=== PATIENT | male | born 1985 | race Caucasian/White ===

== ENCOUNTER 2019-02-25 07:38 | Emergency (ER) | payer BC ==
[2019-02-25 08:28] VITALS: BP 137/90
--- NOTE | 2019-02-25 08:58 | UC ---
Respiratory Complaint HPI - HPI Summary HPI Summary: 34 year old male with PMH + for asthma, sinus infections presents with sinus pain/ tenderness, right sided ear pain, sort throat, intermitteny shortness of breath. denies wheezing. has albuterol rescue inhaler for SOB, working well. Needs refill. no fever, chills. - History of Current Complaint Chief Complaint: UCGeneralIllness Stated Complaint: SINUS COMPLAINT Time Seen by Provider: 02/25/19 08:56 Hx Obtained From: Patient Onset/Duration: Sudden Onset, Lasting Days Severity Currently: None Pain Intensity: 0 Pain Scale Used: 0-10 Numeric Character: Cough: Nonproductive Aggravating Factors: Deep Breaths Associated Signs And Symptoms: Positive: Nasal Congestion, Sinus Discomfort Related History: Seasonal Allergies - Allergies/Home Medications Allergies/Adverse Reactions: Allergies Allergy/AdvReac Type Severity Reaction Status Date / Time No Known Allergies Allergy Verified 02/25/19 08:27 PMH/Surg Hx/FS Hx/Imm Hx Previously Healthy: Yes Respiratory History: Other - asthma - Surgical History Surgical History: Yes Surgery Procedure, Year, and Place: bilateral eye sx at age 17 - Family History Known Family History: Positive: Non-Contributory - Social History Occupation: Employed Full-time Alcohol Use: Daily Substance Use Type: None Smoking Status (MU): Never Smoked Tobacco Review of Systems All Other Systems Reviewed And Are Negative: Yes Constitutional: Positive: Fatigue Eyes: Positive: Negative ENT: Positive: Sore Throat, Ear Ache, Nasal Discharge, Sinus Congestion, Sinus Pain/Tenderness Respiratory: Positive: Shortness Of Breath, Cough Cardiovascular: Positive: Negative Gastrointestinal: Positive: Negative Genitourinary: Positive: Negative Motor: Positive: Negative Is Patient Immunocompromised?: No Physical Exam Triage Information Reviewed: Yes Appearance: Well-Appearing, No Pain Distress, Well-Nourished Vital Signs: Initial Vital Signs Temp 97.7 F 02/25/19 08:23 Pulse 70 02/25/19 08:23 Resp 16 02/25/19 08:23 BP 137/90 02/25/19 08:23 Pulse Ox 99 02/25/19 08:23 Vital Signs Reviewed: Yes Eyes: Positive: Conjunctiva Clear ENT: Positive: Hearing grossly normal, Pharynx normal, Nasal congestion, TMs normal - left, TM bulging - right, TM red - right, Uvula midline, Other - periauric tenderness right ear. Negative: Pharyngeal erythema, Nasal drainage, Tonsillar swelling, Tonsillar exudate, Sinus tenderness Neck: Positive: Supple, Nontender, No Lymphadenopathy. Negative: Nuchal Rigidity, Enlarged Nodes @ Respiratory: Positive: Chest non-tender, Lungs clear, Normal breath sounds, No respiratory distress, No accessory muscle use. Negative: Respiratory distress, Crackles, Rhonchi, Stridor, Wheezing Cardiovascular: Positive: RRR, No Murmur Psychological Exam: Normal Skin Exam: Normal Respiratory Course/Dx - Course Course Of Treatment: - ANtibiotics as directed for sinus symptoms, ear infection right - Over the counter medications for pain, symptoms such as tylenol/ motrin, throat drops - ALbuterol rescue inhaler as needed for shortness of breath, cough every 4 hours - Increase fluid intake to prevent cough, sore throat - Humidifier at night to help with symptoms - FOllow up with primary physician if no improvement within 2-3 days - GO to ER with difficulty breathing, fever > 102, neck pain - Differential Dx/Diagnosis Differential Diagnosis/HQI/PQRI: Influenza, SARS, Sinusitis Provider Diagnosis: Sinusitis, Otitis media Discharge ED - Sign-Out/Discharge Documenting (check all that apply): Patient Departure All imaging exams completed and their final reports reviewed: No Studies - Discharge Plan Condition: Good Disposition: HOME Prescriptions: Albuterol HFA INHALER* [Ventolin HFA Inhaler*] 1 - 2 puff INH Q4H PRN #1 mdi PRN Reason: shortness of breath, cough Amoxicillin/Clavulanate TAB* [Augmentin TAB 875*] 875 mg PO BID #14 tab Patient Education Materials: Sinusitis (ED), Ear Infection (ED) Referrals: Luc LANTIGUA,Herrera Pereyra [Primary Care Provider] - Additional Instructions: - ANtibiotics as directed for sinus symptoms, ear infection right - Over the counter medications for pain, symptoms such as tylenol/ motrin, throat drops - ALbuterol rescue inhaler as needed for shortness of breath, cough every 4 hours - Increase fluid intake to prevent cough, sore throat - Humidifier at night to help with symptoms - FOllow up with primary physician if no improvement within 2-3 days - GO to ER with difficulty breathing, fever > 102, neck pain - Billing Disposition and Condition Condition: GOOD Disposition: Home
== END 2019-02-25 09:16 | disposition home or self-care (01) ==
LOC: UCCORT 07:38
DX: J32.9 Chronic sinusitis, unspecified (principal); H66.91 Otitis media, unspecified, right ear; J45.909 Unspecified asthma, uncomplicated
CPT/HCPCS: 99202; G0463